=== PATIENT | male | born 1955 | race Caucasian/White ===

== ENCOUNTER 2020-02-11 07:28 | Inpatient (IN) | payer BC, OTHER ==
[2020-02-06 11:15] LABS: URINE BILIRUBIN NEGATIVE (Negative); URINE BLOOD NEGATIVE (Negative); URINE CLARITY CLEAR; URINE COLOR YELLOW; URINE GLUCOSE-RANDOM* NEGATIVE (Negative); URINE KETONES NEGATIVE (Negative); URINE LEUKOCYTES-REFLEX NEGATIVE (Negative); URINE NITRITE-REFLEX NEGATIVE (Negative); URINE PROTEIN (DIPSTICK) NEGATIVE (Negative); URINE SPECIFIC GRAVITY 1.025 (1.005-1.035); URINE UROBILINOGEN 0.2 E.U./dl (0.2-1.0)
[2020-02-06 11:16] LABS: HEMATOCRIT 42.2 % (42.0-52.0); HEMOGLOBIN 14.4 gm/dL (14.0-18.0); MCH 32.7 pg (26.0-34.0); MCHC 34.2 g/dL (28.0-37.0); MCV 95.7 fL (80.0-100.0); RBC 4.41 mil/uL (4.50-6.00); RDW 13.4 % (10.5-14.5); WBC 5.1 thou/uL (4.0-11.0)
[2020-02-06 11:29] LABS: PROTIME 10.4 Seconds (9.3-11.4)
[2020-02-06 11:39] LABS: CALCIUM 8.4 mg/dL (8.5-10.1); CREATININE 1.1 mg/dL (0.7-1.3)
--- NOTE | 2020-02-06 12:08 | EKG ---
[facility] [place] [address] ELECTROCARDIOGRAM REPORT Name: SOLO ZAVALA Room #: PRE [facility] M..#: [id number] Admission: Attend Phys: Jarett Fernando MD Discharge: Date of : 57 Report #: [id number] THIS REPORT FOR: cc: Juice Steele Herbert E. DO Couchonnal, Luis F. MD ~ THIS REPORT FOR: //name// [facility] Test Date: 2020-02-06 Test Time: 10:53:33 Pat Name: SOLO ZAVALA Department: Room: Gender: Manager Post: [employer] : 1955 Requested By: Jarett Fernando Order Number: [id number] MD: Niall Ravi Measurements Intervals [place] Rate: 51 P: 39 FL: 189 QRS: -30 QRSD: 105 T: -2 QT: 456 QTc: 420 Interpretive Statements Sinus rhythm Inferior infarct, old No previous ECG available for comparison Electronically Signed On 02-06-2020 12:06:39 CDT by Niall Ravi [email or web address] <ELECTRONICALLY SIGNED> By: Niall Ravi MD 02/06/20 1206 1053 1053 Niall Ravi MD /FRANCESCO
[~2020-02-11] VITALS: Ht 177.8 cm; Wt 81.6 kg
--- NOTE | ~2020-02-11 | O ---
[facility] [place] [address] OPERATIVE REPORT Name: SOLO ZAVALA Room #: 444-P [facility] IN M.R.#: [id number] Admission: 02/11/20 Attend Phys: Jarett Fernando MD Discharge: Date of : 57 Report #: [id number] THIS REPORT FOR: cc: Juice Steele,Juice Eckert,Jarett Colindres MD ~ CC: Juice Fernando DATE OF SERVICE: 02/11/2020 PREOPERATIVE DIAGNOSIS: Right knee osteoarthritis. POSTOPERATIVE DIAGNOSIS: Right knee osteoarthritis. PROCEDURE: Right knee arthroplasty using Navio robotic [employer] assistant ____ on computer-assisted navigation without imaging. SURGEON: Jarett Fernando MD. BANKING SPECIALIST: Ana Farrell PA-C. INDICATIONS FOR BANKING SPECIALIST: Throughout the case, extensive retraction and manipulation of the knee was required. This was afforded to me by my pizza hut assistant. ANESTHESIA: General with an adductor canal block. IMPLANTS: [employer] size 5 Journey II BCS Oxinium femur, size 5 tibia, size 10 constrained polyethylene and size 32 patella. TOURNIQUET TIME: 56 minutes. ESTIMATED BLOOD LOSS: 25 mL. COMPLICATIONS: None. SPECIMENS: None. CONDITION UPON LEAVING THE OPERATING ROOM: Stable. INDICATIONS FOR PROCEDURE: The patient is a 64-year-old gentleman with severe right knee osteoarthritis. He had failed conservative measures for this and after discussion with him, he elected for right total knee arthroplasty. DESCRIPTION OF PROCEDURE: Risks, benefits, alternatives, complications were discussed in detail with the patient including, but not limited to risk of [facility] [address] [place] [address] OPERATIVE REPORT Name: SOLO ZAVALA Room #: 444-P [facility] IN M.R.#: [id number] Admission: 02/11/20 Attend Phys: Jarett Fernando MD Discharge: Date of : 57 Report #: [id number] anesthesia, risk of damage to nerves, arteries, blood vessels, risk for infection, bleeding, risk for continued knee pain, need for reoperation. Informed consent was obtained from the patient. Right knee was appropriately marked in the preoperative holding area. IV Ancef was given for preoperative antibiotics. He was brought to the operating room and placed in supine position on the operating room table. LMA anesthesia was induced without complication. Tourniquet was placed on the right thigh. Right lower extremity was prepped and draped in normal sterile fashion. Timeout was performed properly identifying the patient and procedure as well as the instrumentation. All in the operating room were in agreement. Right lower extremity was exsanguinated, tourniquet was inflated. Tourniquet time was 56 minutes. Standard midline approach to knee was made with 10 blade through the skin. Dissection was taken down sharply to the fascia and deep flaps were developed medially and laterally. Fresh 10 blade was used to make a medial parapatellar arthrotomy and the knee was inspected. There was severe medial compartment osteoarthritis with [id number]-[id number] patellofemoral osteoarthritis. It was decided to proceed with total knee arthroplasty. ACL and PCL were removed sharply. Reference pins were placed in the femur and the tibia and the knee was digitally mapped using the [employer] robotic system. Intraoperative plan was made and we sized the size 5 femur with a size 5 tibia with a 10 spacer. After acceptance of the intraoperative plan, the distal femoral cut was made with a Navio bur. The distal femoral cutting block was pinned in place and distal femoral cuts were made. Attention was then turned to the tibia. Remainder of the menisci removed with Bovie cautery. Tibial resection guide was pinned in place using the Navio for placement and tibial resection was made. After this, flexion and extension gaps were checked and found to be somewhat tight medially in flexion and extension. The medial osteophyte was removed from the tibia and this balanced the knee well in flexion and extension. After this, tibia was sized, found to be a size 5. A size 5 tibial trial was placed, pinned and punched. A size 5 femoral trial was placed and box cut was made. This was then trialed with a size 10 polyethylene. Knee was taken through range of motion, found to have a millimeter laxity medially with a 2-2.5 mm laterally throughout range of motion. It was felt we could make up with a constrained liner. A 9 mm was then resected from the posterior surface of the patella and a size 32 patellar trial button was placed. Knee was taken through range of motion, found to be stable ____ patellar tracking. After this, trial components were removed. Bony ends were thoroughly irrigated with normal saline. A final size 5 tibia, size 5 Journey II BCS Oxinium femur and a size 32 patella were cemented in place using standard cementation techniques. While the cement cured, a periarticular injection consisting of morphine, ropivacaine, epinephrine and Toradol was placed around the knee joint capsule. After the cement cured, the tourniquet was deflated. Hemostasis was obtained with Bovie cautery. A gram of vancomycin was placed deep in the joint. Fascia was closed with 0 Vicryl, skin was closed with 2-0 Vicryl, 3-0 Monocryl. Dermabond and a MELVIN dressing were applied. The patient tolerated this [address] [address] OPERATIVE REPORT Name: SOLO ZAVALA Room #: 444-P [facility] IN M.R.#: [id number] Admission: 02/11/20 Attend Phys: Jarett Fernando MD Discharge: Date of : 57 Report #: [id number] procedure well and went to recovery room under care of anesthesia postoperatively. By: 1209 1331 Jarett Fernando MD /nt
[~2020-02-11 07:28] MED LIST: DAILY MULTIPLE1 EACH PO; DESYREL150 MG PO; DEXMETHYLPHENID10 MG PO
[2020-02-11 09:39] VITALS: BP 121/75
[2020-02-11 12:43] VITALS: BP 119/68
[2020-02-11 15:21] VITALS: BP 103/52
--- NOTE | 2020-02-11 15:38 | NUR ---
PT ADMITTED RELATED TO RT TOTAL KNEE REPLACEMENT. CM REVIEWED CHART AND SPOKE WITH CARE TEAM. CM CALLED AND SPOKE WITH PT AT [facility] THIS DAY. PT APPEARED TO BE A&O X4. CM ROLE INRODCUED. PT INDICATED HE LIVES IN A HOUSE WITH HIS SPOUSE WITH 2 STEPS TO ENTER THEN ALL NEEDS ON 1 LEVEL. 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 PT INDICATED HE HAS A FWW, CANE, AND CRUTCHS FOR HOME USE. PT INDICATED HE ANTICPATES RETURNING HOME WITH SOME HH VISITS FROM [facility] THEN TRANSITIONING TO OP THERE NEXT WEEK. CARE TEAM INDICATED HAT PT IS MEDICALLY STABLE TO DC HOME THIS DAY. CASE CLOSED.
--- NOTE | 2020-02-11 15:48 | NUR ---
PT TRANSFERED FROM PACU. A&OX4 DROWSEY. IV INTACT IN L HAND INFUSING FLUIDS W/O COMPS. R KNEE IS D/I. MELIVN DRSG SECURED WITH POLAR PACK AND SANA WRAP. PT HAS NO PAIN AT THIS TIME.ORIENTED TO ROOM / CALL LIGHT WITHIN REACH. PT IS OBS POSSIBLE DC TODAY. UPDATE GIVEN TO SPOUSE FRANCISCO.
[2020-02-11] MEDS ORDERED: HYDROCODON-ACE1 EAC7 PO (16:15)
[2020-02-11] MEDS ORDERED: MS CONTIN15 MG PO (16:16)
[2020-02-11] MEDS ORDERED: NEURONTIN 300M300 M2 PO (16:16)
[2020-02-11] MEDS ORDERED: ASPIR 8181 MG PO (16:18)
[2020-02-11 16:30] VITALS: BP 119/68
--- NOTE | 2020-02-11 18:18 | NUR ---
DC ORDERS RECEIVED. DISCHARGE INSTRUCTIONS, F/U APPOINT. PT ALREADY HAS SCRIPTS FILLED AT HOME. IV REMOVED FROM L HAND. SPOUSE FRANCISCO CALLED TO INFORM PT WOULD MET HER FRONT ENTRANCE.
== END 2020-02-11 18:28 | disposition home or self-care (01) | DRG 470 ==
LOC: OR 07:28 → 4S 13:16 → OR 14:47 → 4S 18:28
PROVIDERS: ADMIT Orthopaedic Surgery
PROC: 8E0Y0CZ Robotic Assisted Procedure of Lower Extremity, Open Approach (ICD-10-PCS; principal; 2020-02-11)
PROC: 0SRC069 Replacement of Right Knee Joint with Oxidized Zirconium on Polyethylene Synthetic Substitute, Cemented, Open Approach (ICD-10-PCS; principal; 2020-02-11)
DX: M17.11 Unilateral primary osteoarthritis, right knee (principal); Z79.899 Other long term (current) drug therapy
CPT/HCPCS: 10102; 50010; 50101; 50415; 50954; 51130; 51225; 51320; 52001; 52282; 53000; 53078; 54118; 55372; 56527; 56528; 57095; 57103; 57110; 57127; 57180; 64039; 70005

== ENCOUNTER → 2020-02-13 | Outpatient (CLI) | payer BC, OTHER ==
[~2020-02-13] MED LIST changes: +ASPIR 8181 MG PO; +HYDROCODON-ACE1 EAC7 PO; +MS CONTIN15 MG PO; +NEURONTIN 300M300 M2 PO
== END ==
LOC: ULTRA 10:18
DX: R60.0 Localized edema (principal); M79.604 Pain in right leg